=== PATIENT | male | born 1960 | race Two or more races ===

== ENCOUNTER 2023-06-21 04:27 | Day surgery (SDC) | payer OTHER ==
[2023-06-19 12:34] VITALS: BMI 27.0
[2023-06-21 10:18] VITALS: TEMP 98.6
[2023-06-21 12:15] VITALS: RESP 18
[2023-06-21 12:23] VITALS: BP 121/67; PULSE 63
== END 2023-06-21 10:50 | disposition home or self-care (01) ==
LOC: JASU-ENDO 04:27
PROVIDERS: ATTEND Internal Medicine Gastroenterology
PROC: 0DBL8ZX Excision of Transverse Colon, Via Natural or Artificial Opening Endoscopic, Diagnostic (ICD-10-PCS; principal; 2023-06-21 09:30)
DX: Z12.11 Encounter for screening for malignant neoplasm of colon (principal); D12.3 Benign neoplasm of transverse colon; K64.8 Other hemorrhoids; I10 Essential (primary) hypertension
CPT/HCPCS: 88305-TC